=== PATIENT | male | born 1945 | race Two or more races ===

== ENCOUNTER 2020-10-31 12:06 | Emergency (ER) | payer OTHER ==
[~2020-10-31] VITALS: Ht 160 cm; Wt 61.2 kg
[2020-10-31] MEDS ORDERED: CHILDREN'S ASPI81 MG (12:55)
[2020-10-31] MEDS ORDERED: LIPITOR20 MG (12:55)
[2020-10-31] MEDS ORDERED: PLAVIX75 MG (12:55)
[2020-10-31] MEDS ORDERED: STIOLTO RESPIMAT4 GM (12:56)
[2020-10-31] MEDS ORDERED: UROXATRAL10 MG (12:56)
[2020-10-31] MEDS ORDERED: FINASTERIDE5 MG (12:56)
[2020-10-31] MEDS ORDERED: TOPROL XL50 M1 (12:56)
[2020-10-31] MEDS ORDERED: GRALISE600 MG (12:57)
[2020-10-31] MEDS ORDERED: ETODOLAC300 MG PO (12:57)
[2020-10-31] MEDS ORDERED: BONIVA150 MG (12:57)
[2020-10-31] MEDS ORDERED: SINGULAIR10 MG (12:58)
[2020-10-31] MEDS ORDERED: TORADOL60 MG (12:58)
[2020-10-31] MEDS ORDERED: NORFLEX100MG PO (14:09)
== END 2020-10-31 14:27 | disposition home or self-care (01) ==
LOC: ER 12:06
DX: M54.2 Cervicalgia (principal)

== ENCOUNTER 2022-07-05 15:08 | Emergency (ER) | payer OTHER ==
[~2022-07-05] VITALS: Ht 160 cm; Wt 66.2 kg
[~2022-07-05 15:08] MED LIST: BONIVA150 MG; CHILDREN'S ASPI81 MG; ETODOLAC300 MG PO; FINASTERIDE5 MG; GRALISE600 MG; LIPITOR20 MG; NORFLEX100MG PO; PLAVIX75 MG; SINGULAIR10 MG; STIOLTO RESPIMAT4 GM; TOPROL XL50 M1; TORADOL60 MG; UROXATRAL10 MG
[2022-07-05] MEDS ORDERED: OMEPRAZOLE MAGN20 MG (15:31)
[2022-07-05] MEDS ORDERED: PEPCID AC20 MG (15:31)
[2022-07-05] MEDS ORDERED: PROLIA60 MG/1 ML (15:31)
[2022-07-05] MEDS ORDERED: METOCLOPRAMIDE10 MG PO (20:53)
[2022-07-05] MEDS ORDERED: ANTIVERT25 M2 PO (20:53)
== END 2022-07-05 21:06 ==
LOC: ER 15:08
DX: H81.10 Benign paroxysmal vertigo, unspecified ear (principal); Z86.73 Personal history of transient ischemic attack (TIA), and cerebral infarction without residual deficits